=== PATIENT | female | born 1955 | race Caucasian/White ===

== ENCOUNTER → 2017-02-10 | Outpatient (CLI) | payer BC ==
[~2017-02-10] MED LIST: ASPIRIN EC81 M1 PO; BAYER ASPIRIN325 M1 PO; COZAAR100 MG PO; DEXILANT60 MG PO; FLOMAX0.4 M1 PO; LIPITOR20 MG PO; LORTAB 5-325 M1 EACH PO; LOSARTAN POTASS25 MG PO; MEGA BIOTIN10000 MCG PO; MELATONIN10 M2 PO; MIRALAX17 GM PO; PHENERGAN25 MG PO; PLAQUENIL200 MG PO; PROBIOTIC1 EAC3 PO; REGLAN10 MG PO; SERTRALINE HCL100 M1 PO; TURMERIC500 MG PO; VICODIN PO; VITAMIN B125000 MCG PO; ZANTAC150 M1 PO; ZANTAC150 MG PO; ZOLOFT100 MG PO
--- NOTE | ~2017-02-10 | CR63 ---
[facility] A Service of [facility] RADIOLOGY TEXT RESULTS PATIENT: INDIRA MORRISON LOCATION: [facility] : [birth year] UNIT #: [id number] AGE: [address]: Romario Rivera MD SEX: F ORDER DR: [id number] [facility] [address] [place], [place] [address] [id number] O MR#: [id number] Acc #: [id number] NAME: INDIRA MORRISON : 1955 SEX: F STUDY DATE/TIME: 02/10/2017 9:29 UNIT: [facility] ROOM: STUDY DESCRIPTION: CR Chest 2 View Attending Physician: Romario Rivera M.D. Referring Physician: Romario Rivera M.D. Ordering Physician: Romario Rivera M.D. Primary Care Physician: Geraldine Huizar M.D. MEDICAL IMAGING REPORT This report is preliminary unless electronic signature is present EXAM Chest 02/10/2017 HISTORY 61-year-old woman. Preop clearance for total right knee arthroplasty. Osteoarthritis right knee. Patient gives history of hypertension, reflux, and kidney stones. COMPARISON None. FINDINGS Two-view chest demonstrates mild cardiac enlargement. Hilar structures are preserved. Bilateral lungs are expanded and clear. IMPRESSION Mild cardiac enlargement. No acute chest finding. Dictated by... Shahid Sharma M.D. THIS IS AN ELECTRONICALLY VERIFIED REPORT Shahid Sharma M.D. at 02/11/2017 8:01 AM YUDITH/naz TD: 02/10/2017 15:51 JOB #: [id number] MEDICAL IMAGING REPORT Page 1 of 1 COPY
--- NOTE | ~2017-02-10 | CO ---
Unit #: [id number] #: [id number] Patient: INDIRA MORRISON [id number] [address] [place], [place] [address] [id number] O MR#: [id number] NAME: INDIRA MORRISON ROOM: Age: 61 Sex: F Admission Date: 02/10/2017 : 1955 Attending Physician: Romario Rivera M.D. Primary Care Physician: Geraldine Huizar M.D. Consultation Date: 02/10/2017 CONSULTATION REPORT REASON FOR CONSULTATION Preprocedural medical evaluation prior to right total knee arthroplasty scheduled with Dr. Rivera for 02/22/2017. HISTORY OF PRESENT ILLNESS The patient is a 61-year-old female, who presents to preprocedural screening for the reasons indicated above. She complains of right knee pain, but has no other complaints at the time of this interview. She denies chest, upper back, arm, neck, jaw pain or pressure. She denies dyspnea on exertion, shortness of air, orthopnea or PND. She has never been advised to have an outpatient sleep study done. She denies lightheadedness, dizziness, presyncope, syncope and palpitations. She reports a known history of hole in her heart identified during 2D echocardiogram many years ago for which a optometrist owner advised no further recommendations. She takes antibiotics prophylactically prior to dental procedures because of a history of prior joint replacement, but not because of any issue with her heart. She denies history of myocardial infarction, congestive heart failure, CVA, TIA, diabetes. She has no history of renal failure, but does have a known history of kidney stones and stent placements. She has been evaluated by Dr. Rivera and scheduled for the above-referenced procedure. PAST MEDICAL HISTORY 1. Osteoarthritis. 2. Hypertension. 3. GERD. 4. History of stomach polyps. 5. History of IBS. 6. History of kidney stones and stent placements. 7. Hyperlipidemia. 8. Cutaneous lupus. 9. Risk factors for obstructive sleep apnea per Stop-Bang protocol, specifically, age 61, BMI of 48 and currently under treatment for hypertension. PAST SURGICAL HISTORY 1. Cholecystectomy. 2. Hysterectomy. 3. Left total knee arthroplasty. 4. Left shoulder surgery. 5. Tonsillectomy. 6. Laser lithotripsies x2. 7. Multiple ureteral stent placements. Unit #: [id number] #: [id number] Patient: INDIRA MORRISON Please note, this patient denies a family or personal history of complications to anesthesia. ALLERGIES Denies latex allergy. Adverse reactions; glycopyrrolate caused heart to race and vomiting; ciprofloxacin, nausea; Zithromax, lethargy and nausea; diclofenac, nausea and lethargy. No known medication allergies. CURRENT MEDICATIONS Lipitor 20 mg p.o. every evening, Dexilant 60 mg p.o. every evening, Plaquenil 200 mg p.o. b.i.d., Cozaar 100 mg p.o. every morning, sertraline HCl 100 mg p.o. every evening, MiraLAX 1 packet p.o. every morning, probiotic one p.o. every evening, Zantac 150 mg p.o. every evening, aspirin EC 81 mg p.o. every evening, vitamin B12 5000 mcg p.o. every morning, turmeric 500 mg p.o. every evening, melatonin 10 mg p.o. every evening, brian biotin 10,000 mcg p.o. every evening. SOCIAL HISTORY Denies tobacco use and illicit drug use. Rarely consumes ETOH. FAMILY HISTORY Per review of Dr. Rivera's office note of 02/04/2017, father with diabetes, hypertension and cancer; mother with cancer. REVIEW OF SYSTEMS Last dental exam in 11/2015. The patient denies recommendations for treatment for periodontal disease and/or dental caries. A 10-point review of systems is conducted and negative, except as indicated under history of present illness above. PHYSICAL EXAMINATION GENERAL: A 61-year-old female, awake, alert, in no acute distress. VITAL SIGNS: Temperature 97.2, heart rate 76, respiratory rate 17, blood pressure 142/83, oxygen saturation 96% on room air. HEENT: Atraumatic, normocephalic. Sclerae anicteric. No discharge from eyes, ears, or nares. Corrective eyeglasses in place. LYMPH: No preauricular, postauricular, tonsillar, submental, anterior, posterior cervical adenopathy. ENDOCRINE: No thyromegaly, thyroid nodules, or tenderness. RESPIRATORY: Clear to auscultation in all morrell bilaterally without wheezes, rhonchi, or rales. CARDIOVASCULAR: S1, S2. Regular rate and rhythm without murmur or rub. GI: Bowel sounds are positive x4. Soft, nontender, nondistended, obese. EXTREMITIES: Bilateral lower extremity edema, 2+, without cyanosis or clubbing. MUSCULOSKELETAL: Strength 5/5 in all extremities bilaterally with flexion and extension. NEUROLOGIC: Alert and oriented x3. Speech clear. Hand grasps are strong and equal bilaterally. Cranial nerves II through XII are grossly intact. DIAGNOSTIC STUDIES LABORATORY RESULTS: WBC 5.0, hemoglobin 12.9, hematocrit 39.2, platelets 201,000. Sodium 138, potassium 2.9, chloride 104, CO2 of 28, glucose 108, BUN 23, creatinine 0.7, calcium 8.8, AST 22, ALT 19, alkaline phos 88, bilirubin total 0.8, total protein 6.7, albumin 3.9. Urinalysis; leukocyte esterase trace, nitrites negative, wbc's 2 to 5. Urine culture not indicated. PT 10.1, INR 1.0. Blood type O positive, antibody screen Unit #: [id number] #: [id number] Patient: INDIRA MORRISON negative. MRSA screen is pending. IMAGING STUDIES: Two-view chest x-ray report is pending at this time. CARDIOVASCULAR STUDIES: 12-lead EKG today and confirmed tracing reviewed by me. Normal sinus rhythm. Moderate voltage criteria for LVH, may be normal variant. Borderline ECG. Confirmed report pending at this time. IMPRESSION The patient is a 61-year-old female, who presents to preprocedural screening for 1. Medical evaluation prior to elective right total knee arthroplasty scheduled by Dr. Rivera for 02/22/2017. The patient's Miller revised cardiac risk index is equal to 0.4%. This represents the patient's perioperative risk of cardiac , fatal or nonfatal myocardial infarction, cardiopulmonary arrest, arrhythmia and/or pulmonary edema. This has been discussed in detail with the patient. She wishes to proceed with surgery as scheduled at this time. 2. Hypertension. Blood pressure is stable. We will monitor blood pressure perioperatively and adjust medications and IV fluids accordingly. 3. Gastroesophageal reflux disease, stable. Continue Dexilant postoperatively. 4. History of kidney stones and stent placement. No issues at this time. The patient's urinalysis is negative for infection and the patient is asymptomatic today. 5. Hyperlipidemia. Continue statin postoperatively. 6. History of stomach polyps. 7. History of irritable bowel syndrome, controlled. 8. Cutaneous lupus. The patient takes Plaquenil for this and states that she is okay to not take this medication from lupus standpoint. 9. Risk factors for obstructive sleep apnea per Stop-Bang protocol. We will place the patient on obstructive sleep apnea protocol postoperatively. Any further workup will be outpatient via PCP. 10. Morbid obesity, BMI of 48. Weight loss to recommended BMI suggested. Thank you for allowing us to participate in care of this patient. We will gladly follow her for postop medical management pending order of Dr. Rivera's. Dictated by... Mickie Crews A.P.R.N. for Luis Antonio Stephenson/jose TD: 02/11/2017 04:04 JOB #: [id number] CONSULTATION REPORT Page 1 of 1 X Mickie Crews APRN CONSULTATION REPORT
--- NOTE | ~2017-02-10 | EKG ---
PATIENT: INDIRA MORRISON UNIT #: [id number] Ventricular Rate: 67 BPM Atrial Rate: 67 BPM P-R Interval: 154 ms QRS Duration: 82 ms Q-T Interval: 426 ms QTC Calculation(Bezet): 450 ms P [place]: 26 degrees Calculated R [place]: -6 degrees Calculated T [place]: 0 degrees Diagnosis Line: Normal sinus rhythm Diagnosis Line: Moderate voltage criteria for LVH, may be normal Diagnosis Line: variant Diagnosis Line: Otherwise normal ECG Diagnosis Line: No previous ECGs available Diagnosis Line: Confirmed by KIMMY KRISHNAMURTHY MD ([id number]) on 02/11/2017 Diagnosis Line: 9:18:48 AM INTERPRETING MD: RAGHU ARIAS
[2017-02-10 08:21] LABS: HEMATOCRIT 39.3 % (35.0-45.0); HEMOGLOBIN 12.9 gm/dL (12.0-16.0); MEAN CELL VOLUME 90.8 FL (83-96); MEAN CORPUSCULAR HEMOGLOBIN 29.7 PG (28-34); MEAN CORPUSCULAR HGB CONC 32.8 g/dL (30-36); MEAN PLATELET VOLUME 7.4 FL (6.5-11.5); RED BLOOD COUNT 4.33 X10e (3.90-5.30); RED CELL DISTRIBUTION WIDTH 13.8 % (11.0-15.5)
[2017-02-10 08:23] LABS: URINE APPEARANCE CLEAR; URINE BILIRUBIN NEG (NEG); URINE BLOOD NEG (NEG); URINE COLOR YELLOW; URINE GLUCOSE NEG (NEG); URINE KETONE NEG (NEG); URINE LEUKOCYTE ESTERASE TRACE (NEG); URINE NITRATE NEG (NEG); URINE PH 5.5 (5-8); URINE PROTEIN NEG (NEG); URINE SPECIFIC GRAVITY 1.024 (1.003-1.035); URINE UROBILINOGEN 0.2 MG/DL (NEG)
[2017-02-10 08:27] LABS: URINE BACTERIA AUWI NEG (NEGATIVE); URINE SQUAMOUS EPITHELIAL CELL OCC /[HPF]
[2017-02-10 08:35] LABS: PROTHROMBIN TIME (PATIENT) 10.1 SECONDS (9.6-11.5)
[2017-02-10 08:40] LABS: CULTURE INDICATED? NO
[2017-02-10 09:12] LABS: ALBUMIN SERUM 3.9 g/dL (3.5-5.0); ALKALINE PHOSPHATASE 88 U/L (32-92); ALT (SGPT) 19 U/L (10-40); AST (SGOT) 22 U/L (10-42); BILIRUBIN,TOTAL 0.8 mg/dL (0.2-2.0); BLOOD UREA NITROGEN 23 mg/dL (9-23); BUN/CREATININE RATIO 32.85; CALCIUM SERUM 8.8 mg/dL (8.4-10.2); CARBON DIOXIDE 26 mmol/L (22-31); CHLORIDE 104 mmol/L (100-111); CREATININE SERUM 0.7 mg/dL (0.6-1.4); GLOM FILT RATE Estimated ABOVE60 mL/min (>60); GLUCOSE FASTING 108 mg/dL (70-110); POTASSIUM 3.9 mmol/L (3.5-5.1); PROTEIN TOTAL SERUM 6.7 g/dL (6.0-8.3); SODIUM 138 mmol/L (135-145)
== END | disposition home or self-care (01) ==
LOC: CAMB 07:50
PROVIDERS: Orthopaedic Surgery
DX: Z01.818 Encounter for other preprocedural examination (principal); M17.11 Unilateral primary osteoarthritis, right knee; I10 Essential (primary) hypertension; K21.9 Gastro-esophageal reflux disease without esophagitis; N20.0 Calculus of kidney; I51.7 Cardiomegaly
CPT/HCPCS: 36415; 71020; 80053; 81003; 85027; 85610; 86850; 86900; 86901; 87070; 93005

== ENCOUNTER 2017-02-22 06:52 | Inpatient (IN) | payer BC ==
--- NOTE | ~2017-02-22 | DS ---
Unit #: [id number] #: [id number] Patient: INDIRA MORRISON [id number] [address] [address] [id number] I MR#: [id number] NAME: INDIRA MORRISON ROOM: 452 Age: 61 Sex: F Admission Date: 02/22/2017 : 1955 Discharge Date: Attending Physician: Romario Rivera M.D. Primary Care Physician: Geraldine Huizar M.D. DISCHARGE SUMMARY ADMITTING DIAGNOSIS Primary localized osteoarthritis of the right knee. DISCHARGE DIAGNOSIS Primary localized osteoarthritis of the right knee. PROCEDURES IN HOSPITAL Right total knee. HOSPITAL COURSE The patient was admitted on 02/22/2017, taken to the operating room, where she underwent a right total knee replacement postoperatively. She has done well. She is comfortable on oral pain medicine. Her neurovascular exam is intact. Dressing is intact. Her hemoglobin is 11. She is on aspirin for DVT prophylaxis. She will get up with therapy twice today and after the second therapy, she is safe and comfortable. She will be discharged home. She will be on the routine home medicines plus her pain medicine which is [place] 10/325. She also be on aspirin 325 b.i.d. CONDITION ON DISCHARGE Improved. DISPOSITION To home. Dictated by... Luis Antonio Osorio/jose TD: 02/23/2017 22:24 JOB #: [id number] Unit #: [id number] #: [id number] Patient: INDIRA MORRISON DISCHARGE SUMMARY Page 1 of 1 X Romario Rivera MD DISCHARGE SUMMARY
--- NOTE | ~2017-02-22 | BMI ---
[facility] Nutrition Therapy DATE: 02/23/17 Patient: INDIRA MORRISON Physician: COLE Address: [address] Room/Bed: [address] [place] [address], Zip: [place] [address] Admit Date: 02/22/17 Date of : [birth year] Height: 5 4 Weight: 283 128.4 HIGH BMI NOTE: ANTHROPOMETRICS: HT: 64" WT: 128.4 KG BMI: 48.6 INTERVENTION: 1. REGULAR DIET RECOMMENDATIONS: 1. ADD HEART HEALTHY DIET RESTRICTION IN ORDER TO PROMOTE GRADUAL WEIGHT LOSS TOWARDS HEALTHY BMI. Respectfully, BALDEV JARRELL RD, LD [facility] cc: client file
--- NOTE | ~2017-02-22 | OR ---
Unit #: [id number] #: [id number] Patient: INDIRA MORRISON [id number] [address] [place], [place] [address] [id number] I MR#: [id number] NAME: INDIRA MORRISON ROOM: 452 Date of Procedure: 02/22/2017 Admission Date: 02/22/2017 Surgeon: Romario Rivera M.D. : 1955 Attending Physician: Romario Rivera M.D. Primary Care Physician: Geraldine Huizar M.D. OPERATIVE REPORT PREOPERATIVE DIAGNOSIS Primary localized osteoarthritis of the right knee. POSTOPERATIVE DIAGNOSIS Primary localized osteoarthritis of the right knee. PROCEDURE PERFORMED Right total knee. ASSISTANTS Diane and Tio. ANESTHESIA Adductor canal block plus general. ESTIMATED BLOOD LOSS About 100 mL. INDICATIONS FOR PROCEDURE This is a 61-year-old lady with severe pain in her right knee. She has had pain for months. The pain limits her walking, standing, and interferes with sleep. She has tried injections and anti-inflammatories with no relief of her discomfort. Her x-rays show she has [id number] with subchondral sclerosis and periarticular osteophytes. DESCRIPTION OF PROCEDURE The patient was brought to the holding room, given 3 g of Kefzol, which will be continued postop, but discontinued within 23 hours from the start time of surgery. She was then given an adductor canal block, brought back to the operating room, and given a general anesthetic. Tourniquet placed around the right thigh. The right leg was prepped and draped in a sterile fashion. Tourniquet was inflated to 300. A straight anterior skin incision was made. The subcutaneous dissected away and a medial arthrotomy was performed. Patella was slid to the side. Osteophytes removed from the femur. The intramedullary guide was used and a 6-degree valgus cut was made on the distal femur. The femur was sized and found to be a size 4 from the [employer] knee system. The anterior-posterior cutting block was applied. Rotation was checked in the knee. Anterior and posterior cuts were made along with the chamfer cuts. Proximal tibial cut was made using a 0-degree cutting block. It was sized at a 3. We then removed any posterior condylar osteophytes and the posterior capsule and periosteum were injected with a ropivacaine mixture. Trial femur was Unit #: [id number] #: [id number] Patient: INDIRA MORRISON applied. The drill holes were made for lugs on the femoral component. Trial tibia was applied. We found that an 8 insert gave appropriate stability in extension and flexion. Rotation of the tibia was marked. The external alignment guide showed appropriate alignment of the limb. The patella was grasped with 2 towel clips, measured 23 mm thick, was cut smooth at 13 and a 38 patella was the appropriate size. The 3 drill holes were made. Trial patella applied and it tracked properly. We then removed all the trials, used the drill and punch for the tibial tray. The knee was irrigated and dried while the cement was mixed. Then, all 3 components were cemented simultaneously. Any excess cement was removed. After the cement was hardened, the tourniquet was released. Hemostasis was obtained. The rest of ropivacaine mixture was injected. The knee was then irrigated with a dilute Betadine solution and then bacitracin and then the wound was closed using 0 Ethibond in the arthrotomy, 0 and 2-0 Vicryl in the subcutaneous and joaquina in the skin. Dictated by... Luis Antonio Osorio/jose TD: 02/23/2017 02:05 JOB #: [id number] OPERATIVE REPORT Page 1 of 1 X Romario Rivera MD PROCEDURE OPERATIVE NOTE
[~2017-02-22 06:52] MED LIST changes: -BAYER ASPIRIN325 M1 PO; -VICODIN PO
[2017-02-22 07:37] LABS: PROTHROMBIN TIME (PATIENT) 10.4 SECONDS (9.6-11.5)
[2017-02-23 03:14] LABS: HEMATOCRIT 33.3 % (35.0-45.0)
[2017-02-23 03:41] LABS: BUN/CREATININE RATIO 17.14; CALCIUM SERUM 8.7 mg/dL (8.4-10.2); CREATININE SERUM 0.7 mg/dL (0.6-1.4); GLOM FILT RATE Estimated 92.2 mL/min (>60); MAGNESIUM 2.1 mg/dL (1.6-3.0); POTASSIUM 3.9 mmol/L (3.5-5.1)
[2017-02-24 03:42] LABS: HEMATOCRIT 33.9 % (35.0-45.0); HEMOGLOBIN 10.9 gm/dL (12.0-16.0)
[2017-02-24] MEDS ORDERED: BAYER ASPIRIN325 M1 PO (14:17)
[2017-02-24] MEDS ORDERED: VICODIN PO (14:23)
== END 2017-02-24 16:25 | disposition home health service (06) | DRG 470 ==
LOC: CSUR 06:52 → CPACUOF 08:00 → C4B 12:35
PROVIDERS: Nurse Practitioner; Orthopaedic Surgery
PROC: 0SRC0J9 Replacement of Right Knee Joint with Synthetic Substitute, Cemented, Open Approach (ICD-10-PCS; principal; 2017-02-22 09:00)
DX: M17.11 Unilateral primary osteoarthritis, right knee (principal); M32.19 Other organ or system involvement in systemic lupus erythematosus; Z68.42 Body mass index [BMI] 45.0-49.9, adult; E66.01 Morbid (severe) obesity due to excess calories; D62 Acute posthemorrhagic anemia; Z88.1 Allergy status to other antibiotic agents; I10 Essential (primary) hypertension; K21.9 Gastro-esophageal reflux disease without esophagitis; G89.18 Other acute postprocedural pain
CPT/HCPCS: 80048; 83735; 85014; 85018; 85610; 94760; 97110; 97116; 97161; 97165; 97530; 97535; C1776; J0131; J0171; J0690; J0735; J1100; J1170; J2250; J2405; J2795; J3010